=== PATIENT | male | born 1965 | race Caucasian/White ===

== ENCOUNTER → 2016-11-19 | Day surgery (SDC) | payer BC ==
[~2016-11-19] VITALS: Ht 185.4 cm; Wt 141.1 kg
[~2016-11-19] MED LIST: DOSS PO; LISINOPRIL20 MG PO; NAPROSYN500 MG PO; PERCOCET 7.5-31 EACH PO; ZOFRAN4 MG PO
== END | disposition home or self-care (01) ==
LOC: OR 10:50
PROVIDERS: Orthopaedic Surgery
PROC: 0RNJ4ZZ Release Right Shoulder Joint, Percutaneous Endoscopic Approach (ICD-10-PCS; 2016-11-19)
PROC: 0LS30ZZ Reposition Right Upper Arm Tendon, Open Approach (ICD-10-PCS; 2016-11-19)
PROC: 0RHJ04Z Insertion of Internal Fixation Device into Right Shoulder Joint, Open Approach (ICD-10-PCS; 2016-11-19)
PROC: 0RBJ4ZZ Excision of Right Shoulder Joint, Percutaneous Endoscopic Approach (ICD-10-PCS; principal; 2016-11-19 17:15)
DX: S43.491A Other sprain of right shoulder joint, initial encounter (principal); I10 Essential (primary) hypertension; F17.220 Nicotine dependence, chewing tobacco, uncomplicated; Z87.442 Personal history of urinary calculi; Z82.5 Family history of asthma and other chronic lower respiratory diseases
CPT/HCPCS: 73030; C1713; J0171; J0690; J1100; J2250; J2370; J2405; J2710; J2795; J3010; J7120